=== PATIENT | female | born 1975 | race African-American/Black ===

== ENCOUNTER 2023-03-14 05:47 | Day surgery (SDC) | payer OTHER ==
[2023-03-10 13:59] VITALS: BMI 26.2
[2023-03-14 10:36] VITALS: TEMP 98
[2023-03-14 13:18] VITALS: BP 123/60; PULSE 62; RESP 14
== END 2023-03-14 12:36 | disposition home or self-care (01) ==
LOC: JASU-ENDO 05:47
PROVIDERS: ATTEND Internal Medicine Gastroenterology
PROC: 0DJD8ZZ Inspection of Lower Intestinal Tract, Via Natural or Artificial Opening Endoscopic (ICD-10-PCS; principal; 2023-03-14 09:45)
DX: Z12.11 Encounter for screening for malignant neoplasm of colon (principal); K64.8 Other hemorrhoids; I10 Essential (primary) hypertension